=== PATIENT | female | born 2005 | race Caucasian/White ===

== ENCOUNTER 2024-07-08 07:00 | Inpatient (IN) | payer OTHER ==
[2024-07-08] MEDS: LACTATED RINGERS SOLUTION 1,000 ML/1,000 ML INFUS.BAG IV SCH (07:10)
[2024-07-08] MEDS: OXYTOCIN 20 UNITS in 0.9% NS 20 UNIT/1,000 ML INFUS.BAG IV SCH (07:45)
[2024-07-08] MEDS ORDERED: BENZOCAINE 28 GM HEMORRHOIDAL OINTMENT TP PRN (08:13)
[2024-07-08] MEDS ORDERED: BENZOCAINE 20% 57 GM BOTTLE TP PRN (08:13)
[2024-07-08] MEDS ORDERED: oxyCODONE HCL 5 MG TABLET PO PRN (08:13)
[2024-07-08] MEDS ORDERED: IBUPROFEN 600 MG TABLET (FP) PO PRN (08:13)
[2024-07-08] MEDS ORDERED: BISACODYL 10 MG SUPP.RECT RC PRN (08:13)
[2024-07-08] MEDS ORDERED: WITCH HAZEL 50% (TUCKS) 40 PAD/JAR PAD TP PRN (08:13)
[2024-07-08] MEDS ORDERED: METHYLERGONOVINE MALEATE 0.2 MG/1 ML AMP IM PRN (08:13)
[2024-07-08 09:15] VITALS: BMI 26.2
[2024-07-08] MEDS ORDERED: ACETAMINOPHEN 325 MG TABLET (FP) PO PRN (10:09)
[2024-07-08 10:17] LABS: HEMATOCRIT 34.7 % (34.1-44.9); HEMOGLOBIN 11.5 g/dL (11.2-15.7); MCHC 33.1 g/dl (32.2-35.5); MEAN CELL VOLUME 86.5 fl (79.4-94.8); MEAN PLT VOLUME 9.1 fl (9.4-12.3); PLATELET COUNT 235 x10^3/uL (182-369); RDW 12.9 % (12.0-16.2)
[2024-07-08 10:18] VITALS: RESP 18
[2024-07-08 10:25] LABS: INR 0.92 (0.83-1.09)
[2024-07-08 10:28] LABS: ACTIVATED PTT 24.4 SECONDS (25.2-36.5)
[2024-07-08 10:42] LABS: MONOCYTE # 1.06 x10^3/uL (0.24-0.86); POTASSIUM 3.8 mmol/L (3.5-5.1)
[2024-07-08 10:43] LABS: BLOOD UREA NITROGEN 14.2 mg/dL (7-18); CALCIUM 8.3 mg/dL (8.5-10.1)
[2024-07-08 10:47] LABS: CREATININE 0.7 mg/dL (0.55-1.3)
[2024-07-08] MEDS: PRENATAL VITAMINS W/ FOLIC ACID TABLET (FP) PO SCH (14:52)
[2024-07-08] MEDS: FERROUS SO4 325 MG TABLET (FP) PO SCH (14:53)
[2024-07-09 07:39] LABS: BASOPHILS # 0.04 x10^3/uL (0.01-0.08); EOSINOPHIL % 0.4 % (0.7-5.8); EOSINOPHILS # 0.08 x10^3/uL (0.04-0.36); HEMATOCRIT 35.8 % (34.1-44.9); HEMOGLOBIN 11.5 g/dL (11.2-15.7); MCHC 32.1 g/dl (32.2-35.5); MEAN CELL VOLUME 88.4 fl (79.4-94.8); MEAN PLT VOLUME 8.9 fl (9.4-12.3); MONOCYTE # 1.17 x10^3/uL (0.24-0.86); MONOCYTE % 6.5 % (4.7-12.5); PLATELET COUNT 252 x10^3/uL (182-369); RDW 13.2 % (12.0-16.2)
[2024-07-09] MEDS ORDERED: SENNOSIDES/DOCUSATE COMBO (SENNA PLUS) TABLET (UD) PO PRN (22:00)
[2024-07-09 23:13] VITALS: TEMP 98.2
[2024-07-10 08:47] VITALS: BP 121/83; PULSE 73
== END 2024-07-10 13:55 | disposition home or self-care (01) | DRG 560 ==
LOC: JLDR 07:00 → J3W 11:52
PROVIDERS: ADMIT Obstetrics & Gynecology; ATTEND Obstetrics & Gynecology
PROC: 10E0XZZ Delivery of Products of Conception, External Approach (ICD-10-PCS; principal; 2024-07-08)
DX: O80 Encounter for full-term uncomplicated delivery (principal); Z3A.38 38 weeks gestation of pregnancy; Z37.0 Single live birth
CPT/HCPCS: 36415; 59409; 80048; 85025; 85610; 85730; 86780; 86850; 86900; 86901